=== PATIENT | male | born 1995 | race Caucasian/White ===

== ENCOUNTER 2021-03-30 14:08 | Emergency (ER) | payer OTHER ==
[~2021-03-30] VITALS: Ht 177.8 cm; Wt 90.7 kg
[2021-03-30] MEDS ORDERED: CEPHALEXIN500 MG PO (17:13)
[2021-03-30 17:17] VITALS: BP 122/68
== END 2021-03-30 17:18 | disposition home or self-care (01) ==
LOC: M.ERS 14:08
DX: S01.511A Laceration without foreign body of lip, initial encounter (principal); Z88.0 Allergy status to penicillin; Z88.2 Allergy status to sulfonamides; W22.8XXA Striking against or struck by other objects, initial encounter; Y93.89 Activity, other specified; Y92.89 Other specified places as the place of occurrence of the external cause; Y99.8 Other external cause status